=== PATIENT | female | born 1945 | race Caucasian/White ===

== ENCOUNTER → 2017-10-19 | Outpatient (CLI) | payer MEDICARE, OTHER ==
--- NOTE | 2017-10-19 13:55 | REP ---
THREE-PHASE BONE SCAN OF THE KNEES. HISTORY: Total knee on the right question loosening or infection. No comparison imaging. TECHNIQUE: 21.6 mCi technetium 99m MDP is injected and standard three-phase imaging was acquired. SCINTIGRAPHIC FINDINGS: Anterior and posterior flow images show normal vascular uptake. Blood pool images show no abnormal soft tissue localization. There is early increased uptake in and about both knees, left a little more prominently than right. 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 There is some prosthesis bone interface uptake on both sides of the right knee joint as expected and mildly increased uptake is seen at the patellar prosthetic interface. There is no focal uptake to suggest loosening or infection. On the left knee there is arthritic uptake in the lateral compartment and to a lesser extent the remainder of the knee. IMPRESSION: No scintigraphic evidence to suggest loosening or infection. 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 Signed by Smith Rosen MD 10/19/2017 04:17 P
== END ==
LOC: M RAD 09:44
PROVIDERS: ATTEND Student in an Organized Health Care Education/Training Program
DX: T84.84XA Pain due to internal orthopedic prosthetic devices, implants and grafts, initial encounter (principal); X58.XXXA Exposure to other specified factors, initial encounter; Y92.89 Other specified places as the place of occurrence of the external cause; Y93.89 Activity, other specified; Y99.8 Other external cause status; Z96.652 Presence of left artificial knee joint
CPT/HCPCS: 78315; A9503

== ENCOUNTER → 2020-09-06 | Outpatient (CLI) | payer MEDICARE, OTHER ==
[~2020-09-06] MED LIST: ECOT81TA5 PO; GABA-1171; LISI10TA15; LISI10TA4; ROSU5TAB5; SYNT50TA
== END ==
LOC: M LABSMTC 11:02
PROVIDERS: ATTEND Anesthesiology
DX: Z01.812 Encounter for preprocedural laboratory examination (principal); Z20.828 Contact with and (suspected) exposure to other viral communicable diseases
CPT/HCPCS: C9803; U0003

== ENCOUNTER 2020-09-11 10:08 | Day surgery (SDC) | payer MEDICARE, OTHER ==
[~2020-09-11] VITALS: Ht 157.5 cm; Wt 78.9 kg
[~2020-09-11 10:08] MED LIST changes: +NS 1,000 ML IV ONE
--- NOTE | 2020-09-11 11:37 | ROOR ---
Patient Name: Farhana Faith Procedure Date: 09/11/2020 11:00 AM Date of : 1945 Age: 75 Room: [facility] Gender: Female Note Status: Finalized Procedure: Total Colonoscopy to Cecum + Cold Snare Polypectomy Indications: Positive Cologuard test Providers: Venkat Zarate MD Referring MD: CHIARA HALL MD Requesting Provider: Medicines: Monitored Anesthesia Care Complications: No immediate complications. Procedure: Pre-Anesthesia Assessment: - The heart rate, respiratory rate, oxygen saturations, blood pressure, adequacy of pulmonary ventilation, and response to care were monitored throughout the procedure. The Colonoscope was introduced through the anus and advanced to the cecum, identified by appendiceal orifice and ileocecal valve. The colonoscopy was performed without difficulty. The patient tolerated the procedure well. The quality of the bowel preparation was excellent. Findings: The perianal and digital rectal examinations were normal. Non-bleeding internal hemorrhoids were found during retroflexion. The hemorrhoids were small and Grade I (internal hemorrhoids that do not prolapse). A small polyp was found at 30 cm proximal to the anus. The polyp was sessile. The polyp was removed with a cold snare. Resection and retrieval were complete. The exam was otherwise without abnormality on direct and retroflexion views. Impression: - Non-bleeding internal hemorrhoids. - One small polyp at 30 cm proximal to the anus, removed with a cold snare. Resected and retrieved. - The examination was otherwise normal on direct and retroflexion views. - The exam was otherwise normal to the cecum. Recommendation: - Patient has a contact number available for emergencies. The signs and symptoms of potential delayed complications were discussed with the patient. Return to normal activities tomorrow. Written discharge instructions were provided to the patient. - High fiber diet. - Discharge patient to home. - Continue present medications. - Await pathology results. - Telephone GI clinic for pathology results in 1 week. - Return to referring physician. - Repeat colonoscopy is not recommended due to current age (66 years or older) for surveillance. - The findings and recommendations were discussed with the patient. Venkat Zarate MD Venkat Zarate MD 09/11/2020 11:36:25 AM Electronically signed by Venkat Zarate MD Number of Addenda: 0 Note Initiated On: 09/11/2020 11:00 AM Estimated Blood Loss: Estimated blood loss: none.
[2020-09-11] MEDS ORDERED: propofoL 500 MG/50 ML VIAL As Ordered ONE (11:47)
[2020-09-11] MEDS ORDERED: LIDOCAINE 2% 100MG/5ML SDV (FOR ANES.) As Ordered ONE (11:47)
[2020-09-11 11:50] VITALS: BP 163/72
== END 2020-09-11 12:15 | disposition home or self-care (01) ==
LOC: M OPP 10:08
PROVIDERS: ATTEND Internal Medicine Gastroenterology
DX: R19.5 Other fecal abnormalities (principal); K64.0 First degree hemorrhoids; D12.5 Benign neoplasm of sigmoid colon

== ENCOUNTER → 2022-01-07 | Outpatient (CLI) | payer MEDICARE, OTHER ==
[~2022-01-07] MED LIST changes: -LISI10TA15; +LISI10TA22; +LISI10TA24; -LISI10TA4; -NS 1,000 ML IV ONE
[2022-01-07 16:58] VITALS: BP 156/78
== END ==
LOC: M WHCPRO 13:36
PROVIDERS: ATTEND Surgery
DX: N60.82 Other benign mammary dysplasias of left breast (principal); N60.81 Other benign mammary dysplasias of right breast; R92.0 Mammographic microcalcification found on diagnostic imaging of breast

== ENCOUNTER → 2022-07-06 | Outpatient (CLI) | payer MEDICARE, OTHER | LOC: M WHC 10:52 | PROVIDERS: ATTEND Surgery | DX: R92.8 Other abnormal and inconclusive findings on diagnostic imaging of breast (principal) | CPT/HCPCS: 77066; G0279 ==